=== PATIENT | male | born 1955 ===

== ENCOUNTER 2021-07-23 15:10 | Outpatient (RCR) | payer OTHER | END 2021-08-21 | LOC: RESP 15:10 | PROVIDERS: ATTEND Internal Medicine | DX: J44.9 Chronic obstructive pulmonary disease, unspecified (principal) | CPT/HCPCS: 94626 ×6; 94799; G0238 ×6 ==

== ENCOUNTER 2021-08-27 10:31 | Outpatient (RCR) | END 2021-09-21 | LOC: RESP 10:31 | PROVIDERS: ATTEND Internal Medicine | DX: J44.9 Chronic obstructive pulmonary disease, unspecified (principal) | CPT/HCPCS: 94626 ×6; G0238 ×6 ==

== ENCOUNTER 2021-09-25 07:51 | Outpatient (RCR) | payer SELFPAY | END 2021-10-22 | LOC: RESP 07:51 | PROVIDERS: ATTEND Internal Medicine | DX: J44.9 Chronic obstructive pulmonary disease, unspecified (principal) ==

== ENCOUNTER 2022-11-23 11:53 | Outpatient (RCR) | payer OTHER, MEDICARE | END 2022-12-22 | LOC: RESP 11:53 | PROVIDERS: ATTEND Internal Medicine | DX: J44.9 Chronic obstructive pulmonary disease, unspecified (principal) | CPT/HCPCS: 94626 ×9; G0238 ×9 ==

== ENCOUNTER 2022-12-24 13:25 | Outpatient (RCR) | payer OTHER, MEDICARE | END 2023-01-21 | LOC: RESP 13:25 | PROVIDERS: ATTEND Internal Medicine | DX: J44.9 Chronic obstructive pulmonary disease, unspecified (principal) | CPT/HCPCS: 94626 ×8; G0238 ×8 ==